=== PATIENT | female | born 1990 | race Caucasian/White ===

== ENCOUNTER 2021-05-31 22:18 | Emergency (ER) | payer SELFPAY ==
[~2021-05-31] VITALS: Ht 180.4 cm; Wt 59.9 kg
[~2021-05-31 22:18] MED LIST: AMOX500C2 PO; CLN150C PO; DOXY-182 PO; DOXYCYCLINE PO; ERYT3.5O8 OD; FAMO20TA5 PO; GENT3.5O18 OU; HYDR-34 PO; HYDR-3583 PO; IBP800T PO; METR500T PO; NEOM10DR6 EACH EAR; NF-TRA/ACE PO; ONDAN4ODT PO; ONDAN4ODT SL; PRED20TA PO; PRM25T PO
[2021-05-31] MEDS ORDERED: SERT25TA PO (22:37)
[2021-05-31] MEDS ORDERED: LURA20TA PO (22:37)
[2021-05-31] MEDS ORDERED: GABA-490 PO (22:37)
[2021-05-31] MEDS ORDERED: LORazepam 0.5 MG (ATIVAN) TABLET PO STA ×2 (23:02→23:19)
--- NOTE | 2021-05-31 23:08 | ED Psychosocial ---
General Chief Complaint: Detox Stated Complaint: [facility] DETOX Nursing Triage Note: WANTS DETOX FROM [facility], REPORTS LAST USE 05/30/21 Source: patient Exam Limitations: no limitations History of Present Illness Date Seen by Provider: May 31, 2021 Time Seen by Provider: 22:47 Initial Comments Patient to the ER by private conveyance with chief complaint that she has recently moved down here to be with her mom and try and get off of fentanyl. She wants addiction treatment and detox. She does not use benzos. She is on having suicidal ideation. She has not done inpatient addiction treatment. She is not having nausea vomiting or diarrhea. Allergies and Home Medications Allergies Coded Allergies: No Known Drug Allergies (Unverified , 05/11/09) Patient Home Medication List Home Medication List Reviewed: Yes Gabapentin (Gabapentin) 400 Mg Capsule, Unknown Dose PO, (Reported) Entered as Reported by: DOROTHY MAGALLANES on 05/31/212236 Last Action: New Order Lurasidone HCl (Latuda) 20 Mg Tablet, Unknown Dose PO, (Reported) Entered as Reported by: DOROTHY MAGALLANES on 05/31/212236 Last Action: New Order Sertraline HCl (Zoloft) 25 Mg Tablet, Unknown Dose PO, (Reported) Entered as Reported by: DOROTHY MAGALLANES on 05/31/212236 Last Action: New Order [Doxycycline] , PO BID, (Reported) Entered as Reported by: CASPER ENAMORADO on 07/05/151811 Review of Systems Constitutional: No chills, No diaphoresis EENTM: No ear discharge, No ear pain Respiratory: No cough, No short of breath Cardiovascular: No chest pain, No edema Gastrointestinal: No abdominal pain, No nausea, No vomiting Genitourinary: No discharge, No dysuria All Other Systems Reviewed Negative Unless Noted: Yes Past Kcczgsm-Nmwtgh-Ogpdxl Hx Patient Social History Tobacco Use?: No Substance use?: Yes Substance type: Opiates/Opioids, Marijuana Alcohol Use?: No Pt feels they are or have been: No Immunizations Up To Date Tetanus Booster (TDap): Unknown First/Initial COVID19 Vaccinat: 01/24 Second COVID19 Vaccination Isaac: 02/24 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 oz. 63.134529qt; 18.00 BMI Method:Stated General Appearance: WD/WN, mild distress HEENT: PERRL/EOMI, pharynx normal Neck: full range of motion, normal inspection Respiratory: lungs clear, normal breath sounds, no respiratory distress, no accessory muscle use Cardiovascular: normal peripheral pulses, regular rate, rhythm Gastrointestinal: non tender, soft Neurologic/Psychiatric: alert, oriented x 3, other (Anxious affect, pacing) Appearance/Memory: appropriate appearance, appropriate insight, disheveled Behavior/Eye Contact: cooperative, good eye contact, normal speech Thoughts/Hallucinations: normal thought pattern, no apparent hallucination Skin: normal color, warm/dry Progress/Results/Core Measures Results/Orders My Orders Orders - ANDI HAYDEN Lorazepam Tablet (Ativan Tablet) (05/31/21 23:02) Vital Signs/I&O 05/31/21 22:31 Temp 36.1 Pulse 92 Resp 18 B/P (MAP) 127/86 (100) Pulse Ox 100 O2 Delivery Room Air Blood Pressure Mean: 100 Progress Progress Note #1: Time: 23:04 Progress Note She has her sister coming to pick her up. We will give her a suboxone and send some records over to [facility] for outpatient addiction treatment as well as we will give her the number for [facility] if she wishes to pursue inpatient in the morning. Progress Note #2: Time: 23:13 Progress Note Discussed the Case with Dr Caicedo and will give her suboxone, clonidine and phenergan. Have her called on Thursday. Apparently we no longer carry Suboxone on formulary. Departure Impression Primary Impression: Opiate withdrawal Disposition: 01 HOME, SELF-CARE Condition: Stable Departure-Patient Inst. Decision time for Depature: 23:04 [address]errals: [facility] (PCP/Family) Primary Care Physician Patient Instructions: Opioid Use Disorder Add. Discharge Instructions: Call for follow-up. If you wish to go inpatient you can use [facility] in [place], [place] by calling on Thursday morning: [facility] (Admissions) [address] [place], [place] [address] For outpatient in the clinic addiction treatment I suggest you call [facility] on [facility] and request help with addiction treatment. Try calling them in the morning. [phone] [place] [id number] All discharge instructions reviewed with patient and/or family. Voiced understanding. Scripts Promethazine HCl (Promethazine Tablet) 25 Mg Tablet 25 MG PO Q6H PRN for NAUSEA/VOMITING, #10 TAB 0 Refills Prov: ANDI HAYDEN 05/31/21 Clonidine HCl (Clonidine HCl) 0.1 Mg Tablet 0.1 MG PO BID PRN for AGITATION, #5 TAB 0 Refills Prov: ANDI HAYDEN 05/31/21 Copy Copies To 1: TUSHAR CAICEDO DO ANDI HAYDEN May 31, 2021 23:08
[2021-05-31] MEDS ORDERED: CLN.1T PO (23:19)
[2021-05-31] MEDS ORDERED: PROM25TA14 PO (23:19)
[2021-05-31 23:30] VITALS: BP 122/82
[2021-05-31] MEDS ORDERED: PROMETHAZINE 25 MG (PHENERGAN) TAB PO ONE (23:30)
[2021-05-31] MEDS ORDERED: cloNIDine 0.1 MG (CATAPRES) TAB PO ONE (23:30)
[2021-05-31] MEDS ORDERED: diphenhydrAMINE 25 MG TAB (BENADRYL) PO ONE (23:30)
== END 2021-05-31 23:30 | disposition home or self-care (01) ==
LOC: EDUNIT# 22:18 → ER 22:20
DX: F11.23 Opioid dependence with withdrawal (principal)
CPT/HCPCS: 99283

== ENCOUNTER → 2022-05-28 | Outpatient (CLI) | payer MEDICAID ==
[~2022-05-28] MED LIST changes: +CLN.1T PO; +GABA-490 PO; +LURA20TA PO; +PROM25TA14 PO; +SERT25TA PO
--- NOTE | 2022-05-28 18:30 | Diagnostic Imaging Report ---
INDICATION: Routine anatomic survey TECHNIQUE: Multiple real-time grayscale images were obtained over the gravid uterus. COMPARISON: None Number: Single live Presentation: Cephalic Placenta: Posterior. Additionally, the placenta appears to extend over and cover the internal cervical os consistent with previa. Amniotic Fluid: DELFINA is 10.1 cm. Single largest vertical pocket is 3.3 cm. Heart Rate: 153 bpm BPD: 4.9 cm; consistent with 20 weeks and 6 days HC: 18.6 cm; consistent with 21 weeks and 0 days AC: 17.1 cm; consistent with 22 weeks and 1 days FL: 3.7 cm; consistent with 21 weeks and 5 days EGA from current exam: 21 weeks and 3 days gestation plus or minus 2 weeks KVNG from current exam: 10/05/2022 CLINICAL DATES: Gestational age 20 weeks and 3 days, KVNG 10/12/2022 EFW: 455 g (+/- 65 g); this is consistent with the 97th percentile FINDINGS: The anatomic survey is grossly unremarkable. The stomach, four-chamber heart, kidneys, bladder, three-vessel cord and the cord insertion are well seen. The spine and intracranial structures are grossly unremarkable. IMPRESSION: 1. Single live intrauterine at approximately 21 weeks and 3 days, with an KVNG of 10/05/2022. These are within acceptable range of clinical dates. 2. No gross abnormalities are seen at this time. 3. Findings concerning for placenta previa. Follow-up is advised. 4. Estimated weight measuring greater than the 97th percentile. Again, follow-up is advised. Dictated by: Dictated on workstation # [id number]
== END ==
LOC: RAD 15:15
PROVIDERS: ATTEND Nurse Practitioner Women's Health
DX: Z34.02 Encounter for supervision of normal first pregnancy, second trimester (principal); Z3A.21 21 weeks gestation of pregnancy
CPT/HCPCS: 76805

== ENCOUNTER 2022-07-03 22:20 | Outpatient (CLI) | payer MEDICAID ==
[~2022-07-03] VITALS: Ht 177.8 cm; Wt 69.4 kg
[2022-07-03 22:41] VITALS: BP 121/64
[2022-07-03 22:50] LABS: BILIRUBIN,URINE NEGATIVE (NEGATIVE); CLARITY,URINE SL CLOUDY; COLOR,URINE YELLOW; GLUCOSE, URINE (UA) NEGATIVE (NEGATIVE); KETONES,URINE 3+ (NEGATIVE); LEUKOCYTE ESTERASE ,URINE TRACE (NEGATIVE); NITRITE,URINE NEGATIVE (NEGATIVE); PH,URINE 5.5 (5-9); PROTEIN,URINE NEGATIVE (NEGATIVE)
[2022-07-03] MEDS ORDERED: PREN-142 PO (22:57)
[2022-07-03] MEDS ORDERED: ONDA4TAB11 SL (22:57)
[2022-07-03 22:59] LABS: RBC,URINE 0-2 /HPF
[2022-07-03 23:00] LABS: BACTERIA,URINE MODERATE /HPF
[2022-07-03 23:03] LABS: CALCIUM OXALATE CRYSTALS,UR LARGE /LPF
[2022-07-03 23:07] LABS: AMPHETAMINE SCREEN, URINE NEGATIVE (NEGATIVE); BARBITURATE SCREEN URINE NEGATIVE (NEGATIVE); BENZODIAZEPINES SCREEN URINE NEGATIVE (NEGATIVE); CANNABINOID SCREEN, URINE POSITIVE (NEGATIVE); COCAINE SCREEN URINE NEGATIVE (NEGATIVE); METHADONE STAT NEGATIVE (NEGATIVE); OPIATE SCREEN URINE NEGATIVE (NEGATIVE); OXYCODONE STAT NEGATIVE (NEGATIVE); PROPOXYPHENE STAT NEGATIVE (NEGATIVE); TRICYCLIC ANTIDEPRESSANTS SCRE NEGATIVE (NEGATIVE)
--- NOTE | 2022-07-04 07:56 | Physician Query-Final Dx ---
Clinic Account Progress/Dx Physician Query: Please give diagnosis Please include # weeks gestation Date of Service Jul 03, 2022 at 22:20 ,AprJul 04, 2022 07:56
== END 2022-07-03 23:18 | disposition home or self-care (01) ==
LOC: LDRP 22:20 → WSo 22:20
PROVIDERS: ATTEND Obstetrics & Gynecology
DX: O99.891 Other specified diseases and conditions complicating pregnancy (principal); R10.9 Unspecified abdominal pain; R11.10 Vomiting, unspecified; Z3A.26 26 weeks gestation of pregnancy
CPT/HCPCS: 80306; 81000; 87088; G0463; 99212

== ENCOUNTER 2022-08-18 08:59 | Outpatient (CLI) | payer MEDICAID ==
[~2022-08-18] VITALS: Ht 177.8 cm; Wt 72.0 kg
[~2022-08-18 08:59] MED LIST changes: +ONDA4TAB11 SL; +PREN-142 PO
[2022-08-18 09:17] VITALS: BP 113/67
[2022-08-18 09:24] VITALS: BP 113/67
[2022-08-18 09:25] LABS: BILIRUBIN,URINE NEGATIVE (NEGATIVE); CLARITY,URINE TURBID; COLOR,URINE RED; GLUCOSE, URINE (UA) NEGATIVE (NEGATIVE); KETONES,URINE NEGATIVE (NEGATIVE); LEUKOCYTE ESTERASE ,URINE 3+ (NEGATIVE); NITRITE,URINE NEGATIVE (NEGATIVE); PROTEIN,URINE 2+ (NEGATIVE)
[2022-08-18 09:42] LABS: AMORPHOUS SEDIMENT,UR FEW AMOR PHOSPHATE /LPF; BACTERIA,URINE LARGE /HPF; RBC,URINE 25-50 /HPF; WBC,URINE 50-100 /HPF
--- NOTE | 2022-08-18 12:03 | OB Triage Report ---
Standard Progress Note Progress Notes/Assess & Plan Date Seen by a Provider: August 18, 2022 Time Seen by a Provider: 11:58 Expected Date of Delivery: Oct 12, 2022 Gestational Age in Weeks: 32 Gestational Age in Days: 1 LMP/KVNG Comment: 32w1d Progress/Assessment & Plan This 32yo presents @32w1d with c/o vaginal bleeding that started this am Pt has marginal placenta She denies heavy lifting, intercourse or standing for long periods. She also denies CTXs FHT 130 reactive TOCOs occasional bleeding pink discharge and none for last 2 hrs. Will DC to home with continued pelvic rest. Keep next appt PTL and previa precautions. Final Diagnosis IUP @ 32w1d VB--resolved Marginal placenta Diagnosis/Problems Diagnosis/Problems (1) Assessment & Plan: IUP @32w1d DC to home Keep next appt. Qualifiers: Qualified Codes: Z3A.32 - 32 weeks gestation of (2) Marginal placenta, antepartum Assessment & Plan: marginal placenta no active bleeding Pelvic rest. Keep next appt. SUZAN BHATTI DO August 18, 2022 12:03
== END 2022-08-18 12:04 | disposition home or self-care (01) ==
LOC: WSo 08:59 → LDRP 08:59 → WSo 12:04
PROVIDERS: ATTEND Obstetrics & Gynecology
DX: O44.23 Partial placenta previa NOS or without hemorrhage, third trimester (principal); Z3A.32 32 weeks gestation of pregnancy
CPT/HCPCS: 81000; 87088; G0463; 99213

== ENCOUNTER 2022-08-29 06:23 | Outpatient (CLI) | payer MEDICAID ==
[~2022-08-29] VITALS: Ht 177.8 cm; Wt 70.4 kg
[2022-08-29 06:30] VITALS: BP 124/63
--- NOTE | 2022-08-29 06:42 | OB Triage Report ---
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 She states that she has had 15 episodes in the last 12 hours of emesis and a few episodes of diarrhea. She states that she has had some cramping and has a history of a marginal placental. She denies any loss of fluid vaginal bleeding or contractions. Progress/Assessment & Plan Vital signs stable afebrile Heart regular rate and rhythm Lungs clear to auscultation bilaterally Abdomen soft hyperactive bowel sounds gravid nontender Tocos none FHR 150 and reactive Extremities intact no cyanosis clubbing erythema or edema. Diagnosis/Problems Diagnosis/Problems (1) 34 weeks gestation of Assessment & Plan: IUP at 34 weeks 0 days (2) Marginal placenta, antepartum Assessment & Plan: No bleeding currently. Continue to monitor (3) Nausea & vomiting Assessment & Plan: IV fluid hydration CBC IV antiemetics SUZAN BHATTI DO August 29, 2022 06:42
[2022-08-29] MEDS ORDERED: ONDANSETRON 4 MG/2 ML (SDV) Z0FRAN IVP PRN (06:45)
[2022-08-29] MEDS ORDERED: LACTATED RINGERS 1,000 ML IV SCH (06:45)
[2022-08-29 07:10] LABS: BILIRUBIN,URINE 1+ (NEGATIVE); CLARITY,URINE CLEAR; COLOR,URINE YELLOW; GLUCOSE, URINE (UA) NEGATIVE (NEGATIVE); KETONES,URINE 2+ (NEGATIVE); LEUKOCYTE ESTERASE ,URINE TRACE (NEGATIVE); NITRITE,URINE NEGATIVE (NEGATIVE); PROTEIN,URINE TRACE (NEGATIVE)
[2022-08-29 07:12] LABS: BASOPHILS % (AUTO) 0 % (0-10); EOSINOPHILS % (AUTO) 0 % (0-10); HEMATOCRIT 34 % (35-52); HEMOGLOBIN 12.1 g/dL (11.5-16.0); LYMPHOCYTES # (AUTO) 0.5 10^3/uL (1.0-4.0); LYMPHOCYTES % (AUTO) 4 % (12-44); MEAN CORPUSCULAR HEMOGLOBIN 33 pg (25-34); MEAN CORPUSCULAR HGB CONC 35 g/dL (32-36); MEAN CORPUSCULAR VOLUME 94 fL (80-99); MEAN PLATELET VOLUME 11.2 fL (9.0-12.2); MONOCYTES # (AUTO) 0.5 10^3/uL (0.0-1.0); MONOCYTES % (AUTO) 4 % (0-12); NEUTROPHILS # (AUTO) 11.8 10^3/uL (1.8-7.8); NEUTROPHILS % (AUTO) 91 % (42-75); PLATELET COUNT 222 10^3/uL (130-400); WHITE BLOOD COUNT 12.9 10^3/uL (4.3-11.0)
[2022-08-29 07:19] LABS: AMORPHOUS SEDIMENT,UR FEW AMOR URATES /LPF; BACTERIA,URINE NEGATIVE /HPF; SQUAMOUS EPITHELIAL CELL,UR 25-50 /HPF; WBC,URINE 0-2 /HPF
[2022-08-29 07:38] LABS: LYMPHOCYTES % (MANUAL) 6 %; MONOCYTES % (MANUAL) 2 %; NEUTROPHILS % (MANUAL) 92 %
[2022-08-29 07:39] LABS: RBC MORPH NORMAL
== END 2022-08-29 08:35 | disposition home or self-care (01) ==
LOC: WSo 06:23 → LDRP 06:24 → WSo 08:35
PROVIDERS: ATTEND Obstetrics & Gynecology
DX: O99.891 Other specified diseases and conditions complicating pregnancy (principal); R11.2 Nausea with vomiting, unspecified; Z3A.00 Weeks of gestation of pregnancy not specified
CPT/HCPCS: 81000; 85007; 85027; 96360; 96375; G0463; 36415; 99213

== ENCOUNTER 2022-09-29 05:29 | Outpatient (CLI) | payer MEDICAID ==
[~2022-09-29] VITALS: Ht 177.8 cm; Wt 75.5 kg
== END 2022-09-29 10:43 | disposition home or self-care (01) ==
LOC: PREOP 05:29
PROVIDERS: ATTEND Obstetrics & Gynecology
DX: Z01.818 Encounter for other preprocedural examination (principal)

== ENCOUNTER 2022-10-06 02:14 | Inpatient (IN) | payer MEDICAID ==
[2022-10-06] VITALS (14 sets, daily range): BP systolic 104–133; BP diastolic 55–80
[~2022-10-06] VITALS: Ht 177.8 cm; Wt 75.9 kg
[2022-10-06] MEDS ORDERED: CITRIC ACID/SOB CIT (BICITRA) 30 ML UDC ONE (02:40)
[2022-10-06] MEDS ORDERED: ceFAZolin INJECTION 2,000 MG ONE (02:40)
[2022-10-06] MEDS ORDERED: NS (IVPB) 50 ML ONE (02:41)
[2022-10-06] MEDS ORDERED: METOCLOPRAMIDE INJ 10 MG/2 ML (REGLAN) ONE (02:41)
[2022-10-06] MEDS ORDERED: FAMOTIDINE 20MG/2ML IV (PEPCID) ONE (02:42)
[2022-10-06] MEDS: LACTATED RINGERS 1,000 ML IV PRN ×2 (02:56→03:16)
[2022-10-06] MEDS ORDERED: ceFAZolin INJECTION 2,000 MG in NS (IVPB) 50 ML IV ONE (03:00)
[2022-10-06] MEDS ORDERED: LACTATED RINGERS 1,000 ML IV PRN (03:00)
[2022-10-06] MEDS ORDERED: METOCLOPRAMIDE INJ 10 MG/2 ML (REGLAN) IV ONE (03:00)
[2022-10-06] MEDS ORDERED: CATHETER FLUSH 10 ML SYR IV PRN (03:00)
[2022-10-06] MEDS ORDERED: FAMOTIDINE 20MG/2ML IV (PEPCID) IV ONE (03:00)
[2022-10-06] MEDS ORDERED: CITRIC ACID/SOB CIT (BICITRA) 30 ML UDC PO ONE (03:00)
--- NOTE | 2022-10-06 03:04 | History & Physical-OB ---
OB - Chief Complaint & HPI Date/Time Date of Admission: Date of Admission: Oct 06, 2022 at 02:26 Date seen by a Provider: Oct 06, 2022 Time Seen by a Provider: 03:00 Chief Complaint/History OB-Reason for Admission/Chief: Onset of Labor Hx : 4 Hx Para: 2 Expected Date of Delivery: Oct 12, 2022 Gestational Age in Weeks: 39 Gestational Age in Days: 1 Indication for : desires repeat , other (Active Labor) Allergies and Home Medications Allergies Coded Allergies: No Known Drug Allergies (Unverified , 09/29/22) Patient Home Medication List Home Medication List Reviewed: Yes Ondansetron (Ondansetron Odt) 4 Mg Tab.rapdis, 4 MG SL Q4H PRN for NAUSEA/VOMITING, (Reported) Entered as Reported by: SHERI WOLF on 07/03/222256 Last Action: Last Taken Edited Vit No.124/Iron/FA ( Vitamin Tablet) 27 Mg Iron-800 Mcg Tablet, 1 EACH PO DAILY, (Reported) Entered as Reported by: SHERI WOLF on 07/03/222256 OB - History Hx of Present Care: Yes (Dr Dixon) Obstetrical Complications: Other (Prev C/S for Breech) Medical Complications: None Information Induced Hypertension: No Maternal Gestational Diabetes: No Hemorrhage: No Obstetrical History Hx : 4 Hx Para: 2 Hx # Term Pregnancies: 2 Number of Living Children: 2 Hx Total # of Abortions (Spona: 1 Hx Multiple Gestation: No Hx Ectopic : No Delivery History Hx Section: Yes Hx Blood Disorders: No Patient Past Medical History Denies sig PMH Social History/Family History 2nd Hand Smoke Exposure: No Immunizations First/Initial COVID19 Vaccine: 01/24 Second COVID19 Vaccination: 02/24 Tetanus Booster (TDap): Unknown OB - Admission Exam Physical Exam HEENT: PERRLA Heart: Rhythm Normal Lungs: Clear Abdomen: Gravid Extremities: Normal Cervical Dilatation: 7cm Effacement: 75% Station: -2 Membranes: Intact Heart Rate: 130's Accelerations: Accelerations Present Decelerations: No Decelerations Short Term Variability: Present Radiology Tech Variability: Average (6-25) Contractions on Admission: < 5 Minutes Apart Date/Time Contractions Began;: 10/05/20020 Frequency of Contractions: q3-4' Duration: 60 Intensity: Firm OB - Assessment/Plan/Diagnosis Assessment Assessment: active labor, section Admission Dx Term IUP Prior C/S x1 Planned repeat C/S later today Admission Status: Inpatient Order (span 2 midnights) Reason for Inpatient Admission: Admission with 2 day stay anticipated Plan Plan: Section ERICH ROGERS III, DO Oct 06, 2022 03:04
[2022-10-06 03:07] LABS: BASOPHILS % (AUTO) 0 % (0-10); EOSINOPHILS # (AUTO) 0.1 10^3/uL (0.0-0.3); EOSINOPHILS % (AUTO) 1 % (0-10); HEMATOCRIT 32 % (35-52); HEMOGLOBIN 10.8 g/dL (11.5-16.0); LYMPHOCYTES % (AUTO) 17 % (12-44); MEAN CORPUSCULAR HEMOGLOBIN 32 pg (25-34); MEAN CORPUSCULAR HGB CONC 34 g/dL (32-36); MEAN CORPUSCULAR VOLUME 93 fL (80-99); MEAN PLATELET VOLUME 12.4 fL (9.0-12.2); MONOCYTES # (AUTO) 1.1 10^3/uL (0.0-1.0); MONOCYTES % (AUTO) 10 % (0-12); NEUTROPHILS # (AUTO) 8.6 10^3/uL (1.8-7.8); NEUTROPHILS % (AUTO) 72 % (42-75); PLATELET COUNT 255 10^3/uL (130-400); WHITE BLOOD COUNT 11.9 10^3/uL (4.3-11.0)
[2022-10-06] MEDS ORDERED: OXYTOCIN PRE-MIX DRIP 1,000 ML IV ONE (03:13)
[2022-10-06] MEDS ORDERED: fentaNYL INJ 100 MCG/2 ML AMP ONE (03:13)
[2022-10-06 03:41] LABS: BILIRUBIN,URINE NEGATIVE (NEGATIVE); CLARITY,URINE SL CLOUDY; COLOR,URINE YELLOW; GLUCOSE, URINE (UA) NEGATIVE (NEGATIVE); KETONES,URINE NEGATIVE (NEGATIVE); LEUKOCYTE ESTERASE ,URINE 3+ (NEGATIVE); NITRITE,URINE NEGATIVE (NEGATIVE); PH,URINE 6.5 (5-9); PROTEIN,URINE NEGATIVE (NEGATIVE)
[2022-10-06 03:52] LABS: BACTERIA,URINE FEW /HPF; WBC,URINE 50-100 /HPF
[2022-10-06 03:54] LABS: AMPHETAMINE SCREEN, URINE NEGATIVE (NEGATIVE); BARBITURATE SCREEN URINE NEGATIVE (NEGATIVE); BENZODIAZEPINES SCREEN URINE NEGATIVE (NEGATIVE); CANNABINOID SCREEN, URINE NEGATIVE (NEGATIVE); COCAINE SCREEN URINE NEGATIVE (NEGATIVE); METHADONE STAT NEGATIVE (NEGATIVE); OPIATE SCREEN URINE NEGATIVE (NEGATIVE); OXYCODONE STAT NEGATIVE (NEGATIVE); PROPOXYPHENE STAT NEGATIVE (NEGATIVE); TRICYCLIC ANTIDEPRESSANTS SCRE NEGATIVE (NEGATIVE)
[2022-10-06] MEDS ORDERED: HYDROmorphone 2 MG/ML VIAL (DILAUDID) IV PRN (04:30)
[2022-10-06] MEDS ORDERED: TETANUS,DIPTH,PERTUSS P/F (BOOSTRIX) 0.5 ML VIAL IM SCH (04:30)
[2022-10-06] MEDS ORDERED: MEASLES,MUMPS,RUBELLA 1 EA INJ SC SCH (04:30)
[2022-10-06] MEDS ORDERED: NALOXONE 0.4 MG/ML 1 ML (NARCAN) VIAL IV PRN (04:30)
[2022-10-06] MEDS ORDERED: D5 LR IV SOLUTION 1,000 ML IV SCH (04:30)
[2022-10-06] MEDS ORDERED: OXYTOCIN PRE-MIX DRIP 500 ML IV SCH (04:30)
[2022-10-06] MEDS ORDERED: ONDANSETRON 4 MG/2 ML (SDV) Z0FRAN IVP PRN (04:30)
--- NOTE | 2022-10-06 04:31 | OB/GYN Operative Report ---
Operative Report Date of Procedure:Oct 06, 2022 Preoperative Diagnosis: [Term IUP, Prior C/S x1 in Labor] Postoperative Diagnosis: [Same] Name of the Procedure: [Repeat ] Surgeon: Erich Rogers Revenue Integrity Analyst(s): [none] Anesthesia: [SPinal ] Indications for Procedure: [ at 39.1 weeks, scheduled C/S later today, presented in labor] Findings of the Procedure: [Liveborn Male 8# 0oz, 11/12] Name and Description of the Procedure: [Repeat C/S] Complications: None Disposition: [] ERICH ROGERS III, Oct 06, 2022 04:31
[2022-10-06] MEDS ORDERED: CATHETER FLUSH 10 ML SYR IV SCH ×2 (06:00)
[2022-10-06] MEDS: ACETAMINOPHEN 500 MG TAB (TYLENOL) PO SCH ×3 (07:03→19:26)
[2022-10-06] MEDS: DOCUSATE SODIUM 100 MG (COLACE) CAP PO SCH ×2 (08:26→21:14)
[2022-10-06] MEDS: KETOROLAC 30 MG/ML VIAL IVP SCH ×3 (08:26→21:14)
[2022-10-07 00:20] VITALS: BP 110/59
[2022-10-07 03:24] VITALS: BP 106/62
[2022-10-07] MEDS: ACETAMINOPHEN 500 MG TAB (TYLENOL) PO SCH ×3 (03:26→20:30)
[2022-10-07] MEDS: KETOROLAC 30 MG/ML VIAL IVP SCH (03:27)
[2022-10-07] MEDS ORDERED: IBUPROFEN 600 MG (MOTRIN) TAB PO SCH ×2 (04:30→08:00)
[2022-10-07 05:56] LABS: BASOPHILS % (AUTO) 0 % (0-10); EOSINOPHILS # (AUTO) 0.2 10^3/uL (0.0-0.3); EOSINOPHILS % (AUTO) 2 % (0-10); HEMATOCRIT 25 % (35-52); HEMOGLOBIN 8.5 g/dL (11.5-16.0); LYMPHOCYTES # (AUTO) 1.5 10^3/uL (1.0-4.0); LYMPHOCYTES % (AUTO) 13 % (12-44); MEAN CORPUSCULAR HEMOGLOBIN 32 pg (25-34); MEAN CORPUSCULAR HGB CONC 34 g/dL (32-36); MEAN CORPUSCULAR VOLUME 94 fL (80-99); MEAN PLATELET VOLUME 11.9 fL (9.0-12.2); MONOCYTES # (AUTO) 0.9 10^3/uL (0.0-1.0); MONOCYTES % (AUTO) 8 % (0-12); NEUTROPHILS # (AUTO) 8.8 10^3/uL (1.8-7.8); NEUTROPHILS % (AUTO) 77 % (42-75); PLATELET COUNT 196 10^3/uL (130-400); WHITE BLOOD COUNT 11.4 10^3/uL (4.3-11.0)
--- NOTE | 2022-10-07 06:35 | Postpartum Progress Note ---
Note Note Day # 1 Subjective: Patient is without complaints. Ambulating, voiding. Tolerating a regular diet without nausea or vomiting. Normal lochia. Pain is well controlled with oral pain medications. Objective: Physical Exam: General - Alert and oriented, no apparent distress Abdomen - Soft, appropriately tender to palpation, non-distended, fundus firm at umbilicus Extremities - no edema, negative Woody's bilaterally Incision- c/d/i Assessment: POD 1 RLTCS Acute blood loss anemia Plan: Routine care. Encourage breast feeding. Encourage ambulation. Ferrous sulfate supplementation. Plan for discharge tomorrow Vitals - Labs Vital Signs - I&O Vital Signs Date Time Temp Pulse Resp B/P (MAP) Pulse Ox O2 Delivery O2 Flow Rate FiO2 10/07/22 03:24 36.7 73 20 106/62 (77) 97 Room Air 10/07/22 00:20 36.5 66 18 110/59 (76) 98 Room Air 10/06/22 19:50 37.0 73 20 105/65 (78) 98 Room Air 10/06/22 16:41 37.0 70 18 104/55 (71) 98 Room Air 10/06/22 13:32 37.2 78 18 111/66 (81) 96 Room Air 10/06/22 08:22 37.4 70 18 115/61 (79) 97 Room Air I & O 10/07/22 07:00 Output Total 600 ml Balance -600 ml Labs Laboratory Tests 10/07/22 05:32: White Blood Count 11.4H, Red Blood Count 2.69L, Hemoglobin 8.5#L, Hematocrit 25L , Mean Corpuscular Volume 94, Mean Corpuscular Hemoglobin 32, Mean Corpuscular Hemoglobin Concent 34, Red Cell Distribution Width 12.8, Platelet Count 196, Mean Platelet Volume 11.9, Immature Granulocyte % (Auto) 1, Neutrophils (%) (Auto) 77H, Lymphocytes (%) (Auto) 13, Monocytes (%) (Auto) 8, Eosinophils (%) (Auto) 2, Basophils (%) (Auto) 0, Neutrophils # (Auto) 8.8H, Lymphocytes # (Auto) 1.5, Monocytes # (Auto) 0.9, Eosinophils # (Auto) 0.2, Basophils # (Auto) 0.0, Immature Granulocyte # (Auto) 0.1 LESTER OTT DO Oct 07, 2022 06:35
[2022-10-07] MEDS: DOCUSATE SODIUM 100 MG (COLACE) CAP PO SCH ×2 (08:31→20:30)
[2022-10-07] MEDS: FERROUS SULF 325 MG (IRON) TAB PO SCH ×2 (08:31→17:52)
[2022-10-07 08:33] VITALS: BP 111/60
[2022-10-07] MEDS: IBUPROFEN 600 MG (MOTRIN) TAB PO SCH ×2 (11:18→17:52)
[2022-10-07 14:32] VITALS: BP 113/59
[2022-10-07 20:30] VITALS: BP 104/69
[2022-10-08] MEDS: IBUPROFEN 600 MG (MOTRIN) TAB PO SCH ×3 (00:09→12:07)
[2022-10-08] MEDS: ACETAMINOPHEN 500 MG TAB (TYLENOL) PO SCH ×2 (02:39→09:05)
[2022-10-08 02:42] VITALS: BP 126/60
--- NOTE | 2022-10-08 07:21 | Postpartum Progress Note ---
Note Note Day # 2 Subjective: Patient is without complaints. Ambulating, voiding. Tolerating a regular diet without nausea or vomiting. Normal lochia. Pain is well controlled with oral pain medications. Objective: Physical Exam: General - Alert and oriented, no apparent distress Abdomen - Soft, appropriately tender to palpation, non-distended, fundus firm at umbilicus Extremities - no edema, negative Woody's bilaterally Incision- c/d/i Assessment: POD 2 RLTCS Acute blood loss anemia Plan: Routine care. Encourage breast feeding. Encourage ambulation. Ferrous sulfate supplementation. Plan for discharge today Vitals - Labs Vital Signs - I&O Vital Signs Date Time Temp Pulse Resp B/P (MAP) Pulse Ox O2 Delivery O2 Flow Rate FiO2 10/08/22 02:42 36.9 75 20 126/60 (82) 98 Room Air 10/07/22 20:30 36.6 68 18 104/69 (81) 98 Room Air 10/07/22 14:32 37.1 81 18 113/59 (77) 98 Room Air 10/07/22 08:33 37.3 80 18 111/60 (77) 97 Room Air Labs Microbiology 10/06/22 Urine Culture - Final, Complete Gram Pos Mixed Bacterial Cristine See Comments LESTER OTT DO Oct 08, 2022 07:21
--- NOTE | 2022-10-08 07:22 | Discharge Inst-Women's Service ---
Discharge Inst-Women's Serv Depart Medication/Instructions New, Converted or Re-Newed RX: Transmitted to Pharmacy Final Diagnosis POD 2 RLTCS Problems Reviewed?: Yes Consults/Follow Up Additional Follow Up: Yes Orders/Referrals Dr. Dixon in 7-10 days and in 6 weeks Activity Activity: Activity as Tolerated Driving Instructions: No Driving for 1 Week NO SMOKING: NO SMOKING Nothing Inside Vagina: No Douching, No [place], No Tampons Diet Discharge Diet: No Restrictions Symptoms to Report to : Bleeding Excessive, Pain Increased, Fever Over 101 Degrees F, Vaginal Bleeding Increase, Questions/Concerns For Any Problems or Questions: Contact Your Physician Skin/Wound Care Infection Signs and Symptoms: Increased Redness, Foul Odor of Wound, Increased Drainage, Skin Itchy or Has a Rash, Increased Swelling, Temperature Above 101 F Operative Area Clean and Dry: Keep Incision Clean/Dry Stitches/[place]/Dermabond: Dermabond, Care of Stitches Bathing Instructions: LESTER Everett DO Oct 08, 2022 07:22
[2022-10-08] MEDS ORDERED: OXC5T PO (07:23)
[2022-10-08] MEDS ORDERED: FERR325T24 PO (07:23)
[2022-10-08] MEDS ORDERED: ACET-93 PO (07:23)
[2022-10-08] MEDS ORDERED: DOCU100C37 PO (07:23)
[2022-10-08] MEDS ORDERED: IBUP-844 PO (07:23)
[2022-10-08] MEDS: DOCUSATE SODIUM 100 MG (COLACE) CAP PO SCH (08:14)
[2022-10-08] MEDS: FERROUS SULF 325 MG (IRON) TAB PO SCH (08:14)
[2022-10-08 08:15] VITALS: BP 109/67
[2022-10-08 12:10] VITALS: BP 108/63
[2022-10-08 12:35] VITALS: BP 108/63
--- NOTE | 2022-10-08 13:11 | Anesthesia-Regional Post-Op ---
Regional Patient Condition Mental Status: Alert, Oriented x3 Circulation: Same as Pre-Op Headache: Absent Sensation: Full Recovery Motor Block: Absent Post Op Complications Complications None Follow Up Care/Instructions Patient Instructions None needed. Anesthesia/Patient Condition Patient was seen this morning and she was doing well, no complaints, stable vital signs, no apparent adverse anesthesia problems. No complications reported per nursing. ELIZABETH WINN DO Oct 08, 2022 13:11
--- NOTE | 2022-10-09 09:45 | OPERATIVE REPORT ---
DATE OF SERVICE: 10/06/2022 PRIMARY SURGEON: Erich Rogers DO PREOPERATIVE DIAGNOSES: 1. Term intrauterine . 2. Prior section x1. 3. Presentation in active labor. POSTOPERATIVE DIAGNOSES: 1. Term intrauterine . Additionally, live born male , 8 pounds 0 ounces, Apgars 8 and 9. 2. Prior section x1. 3. Presentation in active labor. PROCEDURE PERFORMED: Repeat section. DESCRIPTION OF PROCEDURE: After the patient had been counseled and all counseling notes and permanent have been signed. She was brought to the operating room where she underwent a spinal anesthesia performed by Stuart. The patient was placed in the supine position with left hip roll. She received 2 grams of Ancef preoperatively. An indwelling Acevedo catheter had been placed preoperatively. SCDs were applied. The patient was prepped and draped in the usual sterile fashion. When an adequate level of anesthesia was present, a Pfannenstiel incision was made with sharp dissection of the rectus fascia. Fascia was divided in the midline and extended laterally and cephalad. Fascia was from the underlying rectus muscles. Rectus muscles were divided in the midline. The peritoneum was entered sharply. Peritoneal opening was extended bluntly and an Ottoniel O ring retractor was placed. A low transverse incision on the uterus was made above the vesicouterine fold. The amniotic sac cavity was entered bluntly and an amniotomy was performed with clear fluid. There was a nuchal cord x1, which was reduced. vertex was delivered onto the operative field. The remainder of the infant was delivered on the operative field. The cord was clamped x2 and cut and passed off to nursery staff for assessment. Cord blood was obtained, placenta was delivered manually and intact. The uterine cavity was swept clear. Fixation stitches at the angles of the hysterotomy with 0 Monocryl were placed. The remainder of the hysterotomy was closed with looped 0 PDS. An additional [id number] with 0 Monocryl was required for hemostasis. The Ottoniel O ring retractor was withdrawn. The rectus muscles and peritoneum were reapproximated in the midline with 0 Monocryl. Fascia was closed with looped 0 PDS. A subcuticular closure with 4-0 Monocryl was performed with Dermabond and a pressure dressing taped secured. Estimated blood loss for procedure was 600 mL. Sponge, needle and instrument counts were correct at all times. Job ID: [id number] DocumentID: [id number] Dictated Date: 10/06/2022 04:31:17 Senior Ui Ux Designer Date: 10/06/2022 05:59:00 Dictated By: ERICH ROGERS DO
== END 2022-10-08 12:35 | disposition home or self-care (01) | DRG 787 ==
LOC: WSo 02:14 → LDRP 02:15 → WSo 02:25 → LDRP 02:26
PROVIDERS: ADMIT Obstetrics & Gynecology; ATTEND Obstetrics & Gynecology
PROC: 10D00Z1 Extraction of Products of Conception, Low, Open Approach (ICD-10-PCS; principal; 2022-10-06 03:28)
DX: O34.211 Maternal care for low transverse scar from previous cesarean delivery (principal); D62 Acute posthemorrhagic anemia; Z3A.39 39 weeks gestation of pregnancy; Z37.0 Single live birth; O90.81 Anemia of the puerperium
CPT/HCPCS: 36415; 80306; 81000; 85025; 86780; 86850; 86900; 86901; 87088; 94664; 99212